=== PATIENT | female | born 1940 | race Caucasian/White ===

== ENCOUNTER 2019-03-12 08:13 | Day surgery (SDC) | payer MEDICARE, OTHER, SELFPAY ==
[2019-03-03 10:09] VITALS: BMI 29.8
[2019-03-12] VITALS (11 sets, daily range): BP systolic 79–149; BP diastolic 43–82; PULSE 73–108; RESP 10–25; TEMP 36.2–36.6; O2SAT 94–99; BMI 29.8
--- NOTE | 2019-03-12 | DI.RAD.S_ITS ---
PROCEDURE: XR LUMBAR SPINE 2-3V INDICATIONS: L5-S1 MICRODISCECTOMY TECHNIQUE: 2 views of the lumbar spine were acquired. COMPARISON: None. FINDINGS: 2 intraoperative fluoroscopic spot images demonstrate instrumentation at the L5-S1 level in the dorsal tissues.. IMPRESSION: Intraoperative fluoroscopy for L5-S1 microdiscectomy. Dictated by: Tameka Vallejo M.D. on 03/12/2019 at 12:04 Approved by: Tameka Vallejo M.D. on 03/12/2019 at 12:04
--- NOTE | 2019-03-12 09:02 | PM.PREOP ---
Pre-operative Note Interval Note History & Physical reviewed/Exam performed by Physician: Yes Changes to H&P: No
[2019-03-12] MEDS: LACTATED RINGERS 1,000 ML 42 ML IV (09:14)
--- NOTE | 2019-03-12 09:14 | PM.OP.1 ---
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 They had failed conservative management and requested operative intervention. Risks and benefits of surgery were discussed and appropriate consents were obtained. Surgeon: Andreas Zapata Procurement Services Manager: Margarita Dewitt Anesthesia Type: General Operative Notes Findings: None Closure Type: primary Specimen(s): none sent Estimated Blood Loss (mL): 20 Procedure in detail: Patient was brought to the operating room and intubated on the table. A time-out was performed. There were rolled over the well-padded prone position on the Ramon table. The back was prepped and draped in standard sterile fashion. Preoperative antibiotics were given. Using fluoroscopy, a 3 cm incision was made to the well-marked left of the midline at the L5-S1 level. We used Bovie to come down to and split the fascia. We then used the NuVasive MaXcess dilators with fluoroscopy and then opened our retractors. The soft tissue was cleared off with Bovie, a marker was placed, an x-ray was taken to confirm positioning. We then brought in the microscope. A combination of high-speed bur and Kerrison were used to perform a left-sided hemilaminotomy and hemifacetectomy. We slowly began removing the ligamentum. Once we had this peeled up there was an extremely large facet cyst greatly displacing the thecal sac. We carefully the adhesions to try to free it up from the dura. This required extensive dissection and careful attention so as not to get a dural tear. we were unable to visualize the S1 nerve root and capped teasing away until we finally went distally and found the S1 nerve root coming up underneath the cyst. We then worked our way backwards and dissected the cyst off the S1 nerve root as well. We were able to start him medially retract the S1 nerve root at this point but it was still fairly adhesed to the facet cyst wall. We kept working until finally we could take it medially and then we used our Kerrisons to remove the facet cyst. We took this all the way up to the top of the cyst. At the end of this the cyst and then removed and we had removed the cyst lining as well as part of the medial aspect of the facet joint. the nerve root and dura were free. Once everything was adequately decompressed, the wound was copiously irrigated. An epidural catheter was filled with 100 mcg of fentanyl and 8 mL of 0.25% Marcaine. The dura was carefully depressed under the laminotomy site and the catheter was advanced 6 cm cephalad. The retractor was removed and the fascia was closed. The epidural catheter was then injected without resistance and removed. Vancomycin powder was placed in the wound. Superficial and skin were closed. Sterile dressing was placed. The patient was then rolled over, transferred to the stretcher, and brought to recovery room without complications. Complications: none Condition: stable Disposition: PACU Plan for aftercare: Outpatient. Start PT in 2 weeks.
[2019-03-12] MEDS: CEFAZOLIN 2 GM/100 ML FROZ.PIGGY IV (09:27)
--- NOTE | 2019-03-12 09:53 | SUR.OPER ---
Prone on spine table, head in foam head support, padded chest and pelvic supports, gel pad at knees, lower legs supported by pillows; nipples, genitalia and toes free of pressure, arms secured on foam padded arm boards at <90 degrees abduction. Tape over blanket at thigh secured to table.
[2019-03-12] MEDS: VANCOMYCIN 1,000 MG VIAL 1000 MG TOP (10:04)
[2019-03-12] MEDS: BUPIVACAINE 0.25% (PF) 8 ML, fentaNYL 100 MCG INJ (10:06)
[2019-03-12] MEDS: THROMBIN (RECOMBINANT) 5,000 UNIT VIAL 5000 UNIT TOP (10:11)
[2019-03-12] MEDS: SODIUM CHLORIDE 0.9% 1,000 ML, GENTAMICIN 80 MG IRR (10:15)
[2019-03-12] MEDS: ACETAMINOPHEN IV 1,000 MG/100 ML VIAL 400 MG IV (10:41)
[2019-03-12] MEDS: OXYCODONE IR 5 MG TABLET PO (11:53)
--- NOTE | 2019-03-12 12:11 | SUR.PHASEII ---
Assumed care from Alexis Santizo, Daughter called. Brought back for d/c instructions. Pt medivated by Amna for pain.
--- NOTE | 2019-03-12 13:08 | SUR.PHASEII ---
Late entry:Dressing to back remained c/d/i. No numbness or tingling and pt stated pain minimal especially after pain med given. D/c instructions discussed with daughter and pt, both voiced an understanding. Pt dressed when ready and left when ready and in stable condition.
== END 2019-03-12 12:40 | disposition home or self-care (01) ==
PROVIDERS: Visit Provider Orthopaedic Surgery
PROC: (CPT 63030; principal; 2019-03-12 10:15)
DX: M71.38 Other bursal cyst, other site (principal); M48.062 Spinal stenosis, lumbar region with neurogenic claudication; M41.86 Other forms of scoliosis, lumbar region; M54.16 Radiculopathy, lumbar region; G47.30 Sleep apnea, unspecified; J45.909 Unspecified asthma, uncomplicated
CPT/HCPCS: 63030; 72100; 76000; J0131; J0690; J1100; J2250; J2405; J2704; J3010